=== PATIENT | female | born 1940 | race Caucasian/White ===

== ENCOUNTER → 2021-06-29 15:36 | Outpatient (BNVA) | payer MEDICARE, SELFPAY | PROVIDERS: PCP Internal Medicine; Visit Provider Psychiatry & Neurology Neurology | DX: G25.0 Essential tremor (principal); G31.84 Mild cognitive impairment of uncertain or unknown etiology; G47.30 Sleep apnea, unspecified; Z79.899 Other long term (current) drug therapy; Z96.89 Presence of other specified functional implants | CPT/HCPCS: 95970; 99212 ==

== ENCOUNTER → 2021-10-29 15:31 | Outpatient (BNVA) | payer MEDICARE, SELFPAY | PROVIDERS: PCP Internal Medicine; Visit Provider Psychiatry & Neurology Neurology | DX: G25.0 Essential tremor (principal); G31.84 Mild cognitive impairment of uncertain or unknown etiology; R06.83 Snoring; Z96.89 Presence of other specified functional implants; Z79.899 Other long term (current) drug therapy | CPT/HCPCS: 99212 ==

== ENCOUNTER → 2021-11-14 14:03 | Outpatient (REF) | payer MEDICARE, SELFPAY | LOC: HO.SL 14:03 | PROVIDERS: PCP Internal Medicine; Visit Provider Psychiatry & Neurology Neurology | DX: R06.83 Snoring (principal); G47.10 Hypersomnia, unspecified; G31.84 Mild cognitive impairment of uncertain or unknown etiology | CPT/HCPCS: 95806 ==

== ENCOUNTER → 2022-02-18 14:29 | Outpatient (BNVA) | payer MEDICARE, SELFPAY | PROVIDERS: PCP Internal Medicine; Visit Provider Psychiatry & Neurology Neurology | DX: G47.9 Sleep disorder, unspecified (principal); G31.84 Mild cognitive impairment of uncertain or unknown etiology; G25.0 Essential tremor; Z96.89 Presence of other specified functional implants | CPT/HCPCS: 99212 ==

== ENCOUNTER → 2022-08-19 14:03 | Outpatient (BNVA) | payer MEDICARE, SELFPAY | PROVIDERS: PCP Internal Medicine; Visit Provider Psychiatry & Neurology Neurology | DX: G25.0 Essential tremor (principal); G31.84 Mild cognitive impairment of uncertain or unknown etiology; G47.9 Sleep disorder, unspecified; Z96.89 Presence of other specified functional implants | CPT/HCPCS: 95970; 99212 ==

== ENCOUNTER 2023-02-12 14:08 | Outpatient (AMB) | payer MEDICARE, SELFPAY ==
--- NOTE | 2023-02-12 14:12 | MHC.OFFVIS ---
Intake Vital Signs 02/12/23 14:13 Height 5 ft 5 in Weight 149 lb BMI 24.8 BP 128/62 Blood Pressure Location Rt brachial Position Sitting Respiration 16 Pulse 61 Pulse Source Pulse Oximeter Pulse Oximetry (%) 98 Oxygen Delivery Method Room Air Intake Visit Reasons: 6 mo f/u - Confirmed Intake Note: Pt presents to the office for a 6 month follow up for tremors. Cut Plug Packer Required: No Allergies No Known Allergies Allergy (Verified 02/12/23 14:13) Medication List - Last Reconciled 02/12/23 by Danii Cade MD acetaminophen 325 mg PO QID PRN calcium carbonate 500 mg PO DAILY celecoxib 200 mg PO DAILY cetirizine 10 mg PO DAILY PRN clonazepam 1.5 tab qhs PO bedtime; administer 30 minutes before bedtime nystatin 1 appl topical BID pantoprazole 40 mg PO DAILY polyethylene glycol 3350 17 grams PO DAILY primidone 250 mg PO BID 90 days propranolol 80 mg PO BID 90 days HPI HPI Comments History of Present Illness Details 82y/o female with essential tremors with eber VIM DBS since 2016 comes for follow up.The left 3 fingers are numb for few months now. she is doing well. 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 Brother Leukemia Brother Rheumatoid arthritis Brother Stented coronary artery Social History Household Members: Spouse Alcohol intake: former Patient Tobacco Use Status: Former Tobacco user Quit Date: Physical Exam Vital Signs: Last Vital Signs Pulse 61 02/12/23 14:13 Resp 16 02/12/23 14:13 BP 128/62 02/12/23 14:13 Pulse Ox 98 02/12/23 14:13 Oxygen Delivery Method Room Air 02/12/23 14:13 BMI result Body Mass Index 24.8 Const Other: Head tremors no no , head tilted to right General: cooperative and healthy appearing Neuro Other: No postural tremors No rest tremors head tremors FFM good speech good Cranial nerves: Yes CN's II-XII intact bilaterally and Yes Normal facial strength present Gait exam (Neuro): Other gait observations present (mild off balance) Motor exam (neuro): 5/5 motor strength present throughout Orientation What is the (year) (season) (date) (day) (month)?: year, season, date, day and month Where are we (state) (county) (town or city) (hospital) (floor)?: state, county, town or city, hospital/clinic and floor Registration Name of 3 unrelated objects clearly and slowly, then ask patient to repeat all 3 of them. (1st repeat determines score. Make sure they can repeat all three): object 1, object 2 and object 3 Attention & Calculation (CHOOSE ONE) Spell WORLD backwards (DLROW): 3 letters Recall Ask patient to repeat the 3 items from question #3.: object 1, object 2 and object 3 Language Show patient a wristwatch & ask what it is. Repeat for pencil.: watch and pencil Ask the patient to repeat the phrase 'No ifs, ands, or buts' after you.: correct Ask the patient to 'take a piece of paper with their right hand' 'fold paper in half' 'place paper on floor': take paper in right hand, fold paper in half and place paper on floor Print the sentence 'CLOSE YOUR EYES' on a piece. If patient actually closes eyes then score.: followed written direction Give patient a blank piece of paper & ask to write a sentence. Score if it contains a noun & verb.: sentence contains subject and verb Ask patient to copy figure of intersecting pentagons exactly. Score if all 10 angles & 2 intersects are included.: all 10 angles present & 2 are intersected Score Score: 28 Assessment & Plan Assessment & Plan (1) Benign essential tremor: Code(s): G25.0 - Essential tremor (2) S/P deep brain stimulator placement: Code(s): Z96.89 - Presence of other specified functional implants (3) Mild cognitive impairment: Code(s): G31.84 - Mild cognitive impairment of uncertain or unknown etiology (4) Sleep disorder: Code(s): G47.9 - Sleep disorder, unspecified Plan Continue primidone 250mg bid propranolol 80mg bid clonazepam 0.5mg 1 1/2 tabs qhs [facility] - compliance in ale[place] - average hrs 6 hrs AHI 1.7Pressure about 9-12 cm of water Encouraged patient to use hearing aids to decrease cognitive impairment. DBS interrogated today - needs battery replacement Left VIM 1.6V 90ms 160 Hz Right VIM 0.6V 90Ms 160 Hz Orders: Referrals Neurosurgery Referral G25.0 - Essential tremor, Z96.89 - Presence of other specified functional implants Coding Level of Care Code Est Pt Level 5 (53491) Diagnoses Benign essential tremor G25.0 S/P deep brain stimulator placement Z96.89 Mild cognitive impairment G31.84 Sleep disorder G47.9
[2023-02-12 14:13] VITALS: BP 128/62; PULSE 61; RESP 16; O2SAT 98; BMI 24.8
== END 2023-02-12 15:06 | disposition home or self-care (01) ==
PROVIDERS: PCP Internal Medicine; Visit Provider Psychiatry & Neurology Neurology
DX: G25.0 Essential tremor (principal); Z96.82 Presence of neurostimulator; G31.84 Mild cognitive impairment of uncertain or unknown etiology; G47.9 Sleep disorder, unspecified; Z45.42 Encounter for adjustment and management of neurostimulator
CPT/HCPCS: 95970; 99214

== ENCOUNTER → 2023-02-12 14:08 | Outpatient (BNVA) | payer MEDICARE, SELFPAY | PROVIDERS: PCP Internal Medicine; Visit Provider Psychiatry & Neurology Neurology | DX: G25.0 Essential tremor (principal); G31.84 Mild cognitive impairment of uncertain or unknown etiology; G47.9 Sleep disorder, unspecified; Z96.89 Presence of other specified functional implants | CPT/HCPCS: 95970; 99212 ==

== ENCOUNTER → 2024-04-08 13:57 | Outpatient (AMB) | payer MEDICARE, SELFPAY ==
--- NOTE | 2024-04-08 13:57 | A.OFFVIS_ITS ---
Vital Signs 04/08/24 14:01 Height 5 ft 0.5 in Weight 149 lb BMI 28.6 Intake Visit Reasons: Follow up Commissioning Agent Required: No Accompanied by: Self / Same As Patient Allergies No Known Allergies Allergy (Verified 04/08/24 13:58) Medication List - Last Reconciled 04/08/24 by Yehuda Velez PA-C acetaminophen 325 mg PO QID PRN calcium carbonate 500 mg PO DAILY PRN celecoxib 200 mg PO DAILY clonazepam 1.5 tab qhs PO bedtime; administer 30 minutes before bedtime 30 days nystatin 1 appl topical BID pantoprazole 40 mg PO DAILY polyethylene glycol 3350 17 grams PO DAILY primidone 250 mg PO BID 90 days propranolol 80 mg PO BID 90 days HPI Comments Details: 82y/o female with essential tremors with eber VIM DBS since 2016 comes for follow up. The left hand digits 2,3,4, are numb for few months now. Home sleep study 11/2021 AHI 19/hr O2 swetha 83 She is compliant with CPAP therapy, she says she uses it daily. Her sleep is very good 8-10 hours a night. 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 Her diet is fine, cereal with blueberries and milk. Occasional constipation, she takes miralax prn. She ambulates with a walker at home. She c/o head tremors, especially in synagogue but it gets better when she relaxes. Last month she slipped and fell in the shower, hurt her r. shoulder, went to [facility] and had xrays, did not hit her head. She has a BUILDINGS AND GROUNDS COORDINATOR come in on Fridays and Mondays for 2 hours, and helps her with laundry, cleaning and dishes. She is able to bathe, and dress herself with some statistical assistant. She gets hot meals from [employer]. She socializes at the [facility], does puzzles and plays Bingo. She says her memory is getting worse. [facility] Medical History (Updated 04/08/24 @ 16:30 by Yehuda Velez PA-C) Sleep disorder Mild cognitive impairment (~04/08/24) Benign essential tremor Arthritis Surgical History Status post Mohs surgery S/P skin biopsy S/P deep brain stimulator placement Family History Mother Stomach cancer Father No problems noted. Brother Leukemia Brother Rheumatoid arthritis Brother Stented coronary artery Social History Household Members: Spouse Alcohol intake: former Patient Tobacco Use Status: Former Tobacco user Physical Exam Vital Signs: BMI result Body Mass Index 28.6 Telehealth Telehealth Telehealth Platform: Telephone Location of provider rendering services: practice address Location of patient: address on file Patient Identification confirmed using: Name, : Yes Telehealth method: voice only Patient verbally consented to treatment: Yes Patient verbally consented to billing insurance company: Yes Patient informed of any privacy concerns related to visit: Yes Minutes spent on Phone/Video with Pt.: 45 Assessment & Plan Assessment & Plan (1) Snoring: Code(s): R06.83 - Snoring Category: Medical (2) Sleep disorder: Code(s): G47.9 - Sleep disorder, unspecified Category: Medical (3) Benign essential tremor: Code(s): G25.0 - Essential tremor Category: Medical (4) Cognitive disorder: Code(s): F09 - Unspecified mental disorder due to known physiological condition Category: Medical Plan Cognitive Decline: Continue to socialize with the senior center, playing games, walking and doing puzzles with family and friends. Wear hearing aides daily. Continue CPAP for Sleep Apnea Follow up in 1 month as needed for tremor. Coding Level of Care Code Tele Est Pt Level 4 (53300) Diagnoses Snoring R06.83 Sleep disorder G47.9 Benign essential tremor G25.0 Cognitive disorder F09 Time Spent (min) 45 Comment Improving
--- OUTSIDE RECORDS SUMMARY | 2024-04-08 14:00 | XMS_ITS | Encounter Summary ---
[facility] Address [address] [place] [address] Care Team Providers Care Installation And Repair Technician Name Role Phone Nereida Ulloa MD Primary Care Provider [phone] Reason for Visit * Reason Comments Laceration Left hand lac with k itchen knife Encounter Details Date Type Department Care Team (Late st Contact Info) Description 03/20/2024 8:43 PM EST - 03/20/2024 11:07 PM EST Emergency [facility] Emergency [address] [place] [address] Laceration of left palm, initial encounter (Primary Dx) Discharge Disposition: Home or Self Care Social History Tobacco Use Types Packs/Day Years Used Date Smoking Tobacco: Never Tobacco Cessation:Counseling Given: Not Answered Alcohol Use Standard Drinks/Week Comments Never 0 (1 standard drink = 0.6 oz pur e alcohol) Sex and Gender Information Value Date Recorded Sex Assigned at Female 03/20/2024 9:08 PM EST Gender Identity Female 03/20/2024 9:08 PM EST Sexual Orientation Straight 03/20/2024 9: 08 PM EST Job Start Date Occupation Industry Not on file Not on file Not on file documented as of this encounter Last Filed Vital Signs Vital Sign Reading Time Taken Comments Blood Pressure 145/52 03/20/2024 8:21 PM EST Pulse 68 03/20/2024 8:21 PM EST Temperature 36.6 ??C (97.9 ??F) 03/20/2024 8:21 PM ES T Respiratory Rate 18 03/20/2024 8:21 PM EST Oxygen Saturation 96% 03/20/2024 8:21 PM EST Inhaled Oxygen Concentration - - Weight 67.6 kg (149 lb) 03/20/2024 8:21 PM EST Height 165.1 cm (5' 5 ) 03/20/2024 8:21 PM EST Body Mass Index 24.79 03/20/2024 8:21 PM EST documented in this encounter Discharge Instructions * Discharge Instructions* PETEY Phan - 03/20/2024 10:39 PM EST You had a cut today that we are able to close successfully with skin glue. Please keep the area dryfor 24 hours. After that you may get it wet but only briefly. Do not soak the area, pick at the area, or scratch at the area. When you do get it wet be sure to pat it dry. No bathtubs, lakes, hot tubs, pools or oceans. Please look out for signs of infection such as green or yellow discharge, spreading redness, or fevers. Please allow the glue to fall off on its own. Once it falls off the area should be healed. There will still be an area of redness for a few months. Please be sure to use a sunscreen for at least the first year to prevent scarring. you may also find that vitamin E cream can help prevent scarring. It was a pleasure caring for you today in the emergency department. Please return to the emergency department if you begin to experience any new onset chest pain, shortness of breath, uncontrolled fevers, severe abdominal pain, loss of consciousness, uncontrolled vomiting, uncontrolled diarrhea, or for any other reason you feel is necessary. Please follow-up with your PCP about this visit. Examination and treatment you received in the emergency department has been rendered on an EMERGENCY basis only. It is not intended to be a substitute for or an effort to provide complete medical care. You should follow-up with your primary care provider. Please report to your physician any new or remaining problems, because it is impossible to recognize and treat all elements of injury or illness in a single emergency department visit. If you do not have a primary care provider or require a referral, a follow-up doctor automotive parts person for the emergency department will be provided in your discharge packet. In the event that you're unable to obtain a followup appointment in a timely fashion, OR you are not getting any better, OR you are getting worse, OR you develop any symptoms of concern, please return here immediately for further evaluation. The emergency department is open 24 hours a day, 7 days aweek. Your discharge report is based on information that was available when you were in the emergency department If you do not have a primary care provider, please contact one of the following to make arrangements to follow up. [facility] * Attachments The following attachments cannot be sent through Care Everywhere. * Lacerations: Adhesives (Surinamese) documented in this encounter Medications at Time of Discharge Medication Sig Dispensed Refills Start Date End Date clonazePAM (KlonoPIN) 0.5 mg tablet Take 1 tablet (0.5 mg total) by mouth at bedtime. Max Daily Amount: 0.5 mg 07/11/2016 propranoloL (INDERAL) 80 mg tablet Take 1 tablet (80 mg total) by mouth 2 (two) times a day. 01/16/2024 famotidine (PEPCID) 20 mg tablet Take 1 tablet (20 mg total) by mouth 1 (one) time each day. primidone (MYSOLINE) 250 mg tablet Take 1 tablet (250 mg total) by mouth 2 (two) times a day. documented as of this encounter Discharge Disposition Disposition Code Departure Means Destination Comment s Home or Self Care documented in this encounter Progress Notes * Clau Ernandez RN - 03/20/2024 8:23 PM EST PT arrives to triage alert, oriented and ambulatory with a walker. 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 Bleeding is controlled. NO blood thinners. Cleaned with normal saline, non stick gauze applied and big bandage applied in triage. Lac is about 2cm long on left palm. * PETEY Phan - 03/20/2024 7:46 PM ESTAssociated Order(s): Laceration Repair Emergency Medicine Note Patient Name: Rowena Jain Initial Evaluation: 03/20/2024 : 1940 Patient's PCP: Nereida Ulloa MD Emergency Physician: PETEY Phan History of Present Illness Chief Complaint: Chief Complaint Patient presents with Laceration Left hand lac with kitchen knife HPI: 83-year-old female patient not anticoagulated presented to the ER today reporting a cut on theleft home from a kitchen knife. Patient reports that she was trying to separate frozen hamburgers and accidentally cut herself in the hand when the knife slipped. She reports the bleeding is controlled. Unsure of last Tdap. Denies any distal changes to temperature, sensation, or strength in the fingers. ROS: I have performed a ROS with the pertinent positives and negatives documented in the history ofpresent illness. Previous History History reviewed. No pertinent past medical history. History reviewed. No pertinent surgical history. Social History Tobacco Use Smoking status: Never Substance Use Topics Alcohol use: Never Drug use: Never No family history on file. has No Known Allergies. No current facility-administered medications on file prior to encounter. Current Outpatient Medications on File Prior to Encounter Medication Sig Dispense Refill clonazePAM (KlonoPIN) 0.5 mg tablet Take 1 tablet (0.5 mg total) by mouth at bedtime. Max Daily Amount: 0.5 mg propranoloL (INDERAL) 80 mg tablet Take 1 tablet (80 mg total) by mouth 2 (two) times a day. famotidine (PEPCID) 20 mg tablet Take 1 tablet (20 mg total) by mouth 1 (one) time each day. primidone (MYSOLINE) 250 mg tablet Take 1 tablet (250 mg total) by mouth 2 (two) times a day. Physical Exam Physical Exam Constitutional: General: She is not in acute distress. Appearance: Normal appearance. She is not ill-appearing, toxic-appearing or diaphoretic. HENT: Head: Normocephalic and atraumatic. Eyes: Extraocular Movements: Extraocular movements intact. Pupils: Pupils are equal, round, and reactive to light. Pulmonary: Effort: Pulmonary effort is normal. Musculoskeletal: Comments: Left palm has a 1 cm linear laceration, bleeding controlled, no evidence of foreign body.Full strength noted in all digits distally. Cap refill normal. Laceration is very well-approximated. Skin: General: Skin is warm. Neurological: General: No focal deficit present. Mental Status: She is alert and oriented to person, place, and time. Mental status is at baseline. Psychiatric: Mood and Affect: Mood normal. Behavior: Behavior normal. Thought Content: Thought content normal. Judgment: Judgment normal. ED Triage Vitals [03/20/242020] Temp Heart Rate Resp BP 36.6 ??C (97.9 ??F) 68 18 (!) 145/52 SpO2 Temp src Heart Rate Source Patient Position 96 % -- -- Sitting BP Location FiO2 (%) Right arm -- Results Labs Reviewed - No data to display Abnormal Labs Reviewed - No data to display No orders to display I have discussed the incidental/abnormal imaging and/or lab abnormalities with the patient and haveinstructed them the need for further evaluation and workup with their primary care doctor. I have provided the patient with a paper copy of the abnormality. The laboratory results, imaging results and other diagnostic exam results were reviewed in the EMR. EKG Interpretation Critical Care Time None ? Medical Decision Making Medications Tdap tetanus toxoid-diphtheria toxoid-acellular pertussis (BOOSTRIX) 2.5-8-5 Lf-mcg-Lf/0.5mL vaccine (ADULT - age 7 years and greater) 0.5 mL (0.5 mL intramuscular Given 03/20/24 2223) Medical Decision Making Differential diagnosis include but not limited to: Laceration Nerve injury Tendon injury Vascular injury Foreign body Crush injury Hemorrhage In short 83-year-old female not anticoagulated presenting for laceration to palm of left hand. On arrival vitals are stable patient afebrile. Patient sitting comfortably in chair, nontoxic and in no acute distress, hemodynamically stable. Neurovascularly intact. Bleeding controlled. No foreign body. Well-approximated, believe this could be repaired without sutures and with skin glue instead as there is under low tension and already well-approximated. See procedure note, anticipate discharge after repair. Tdap given. Clinical Impressions as of 03/20/247 Laceration of left palm, initial encounter Procedures Laceration Repair Date/Time: 03/20/2024 10:43 PM Performed by: PETEY Phan Authorized by: Angel Luis Valero MD Consent: Consent obtained: Verbal Consent given by: Patient Risks discussed: Infection, pain, poor wound healing, nerve damage, need for additional repair, poor cosmetic result, vascular damage, retained foreign body and tendon damage Mobile protocol: Patient identity confirmed: Arm band and verbally with patient Anesthesia: Anesthesia method: None Laceration details: Location: Hand Hand location: L palm Length (cm): 1 Exploration: Imaging outcome: foreign body not noted Wound extent: no foreign bodies/material noted and no tendon damage noted Treatment: Area cleansed with: Povidone-iodine Amount of cleaning: Standard Irrigation solution: Sterile saline Irrigation method: Syringe Skin repair: Repair method: Tissue adhesive Approximation: Approximation: Close Post-procedure details: Dressing: Non-adherent dressing Procedure completion: Tolerated well, no immediate complications Diagnosis 1. Laceration of left palm, initial encounter Disposition Discharge ED Prescriptions None Physician Attestation PETEY Phan 03/20/242223 PETEY Phan 03/20/247 Associated attestation - Angel Luis Valero MD - 03/20/2024 10:55 PM EST I agree with the Nurse practitioner's/Physician power plant assistant's note and plan by Ronal Phan 03/20/2024 which I have reviewed and edited where appropriate. I, Dr. Taqueria Valero, [_] was present for the entire procedure: [_] xxx was present for the critical or chen portion of the procedure: Laceration repair [_] performed the initial fracture care for the patient in the ED, comparable to that of a specialist. Surgery is not anticipated. [_] personally verified application and proper positioning of the cast or splint. Angel Luis Valero MD 03/20/24 10:54 PM EST documented in this encounter Plan of Treatment Not on file documented as of this encounter Procedures Procedure Name Priority Date/Time Associated Diagnosis Comments ED LACERATION REPAIR Routine 03/20/2024 10:43 PM EST documented in this encounter Results * Laceration Repair (03/20/2024 10:43 PM EST) Narrative Angel Luis Valero MD - 03/20/2024 10:43 PM EST PETEY Phan ? 03/20/2024 10:47 PM Laceration Repair Date/Time: 03/20/2024 10:43 PM Performed by: PETEY Phan Authorized by: Angel Luis Valero MD ?? Consent: ??Consent obtained: ??Verbal ??Consent given by: ??Patient ??Risks discussed: ??Infection, pain, poor wound healing, nerve damage, need for additional repair, poor cosmetic result, vascular damage, retained foreign body and tendon damage Mobile protocol: ??Patient identity confirmed: ??Arm band and verbally with patient Anesthesia: ??Anesthesia method: ??None Laceration details: ??Location: ??Hand ??Hand location: ??L palm ??Length (cm): ??1 Exploration: ??Imaging outcome: foreign body not noted ?Wound extent: no foreign bodies/material noted and no tendon damage noted ?? Treatment: ??Area cleansed with: ??Povidone-iodine ??Amount of cleaning: ??Standard ??Irrigation solution: ??Sterile saline ??Irrigation method: ??Syringe Skin repair: ??Repair method: ??Tissue adhesive Approximation: ??Approximation: ??Close Post-procedure details: ??Dressing: ??Non-adherent dressing ??Procedure completion: ??Tolerated well, no immediate complications Angel Luis Valero MD IN CLINIC/BEDSIDE OR DERABLES documented in this encounter Visit Diagnoses Diagnosis Laceration of left palm, initial encounter- Primary documented in this encounter Historical Medications * This list may reflect changes made after this encounter. Medication Sig Dispensed Refills Start Date End Date clonazePAM (KlonoPIN) 0.5 mg tablet Take 1 tablet (0.5 mg total) by mouth at bedtime. Max Daily Amount: 0.5 mg 07/11/2016 famotidine (PEPCID) 20 mg tablet Take 1 tablet (20 mg total) by mouth 1 (one) time each day. primidone (MYSOLINE) 250 mg tablet Take 1 tablet (250 mg total) by mouth 2 (two) times a day. propranoloL (INDERAL) 80 mg tablet Take 1 tablet (80 mg total) by mouth 2 (two) times a day. 01/16/2024 added in this encounter Care Teams Installation And Repair Technician Relationship Specialty Start Date End Date Nereida Ulloa MD [address] [place] [id number] PCP - General Internal Medicine 03/20/24 documented as of this encounter
--- OUTSIDE RECORDS SUMMARY | 2024-04-08 14:00 | XMS_ITS ---
Author Organization [facility] Address [address] [place] [address] Phone Care Team Providers Care Automation Specialist Name Role Phone Nereida Ulloa MD Primary Care Provider [phone] [facility] [phone] Plan of Treatment No Plan of Treatment Recorded Assessments Includes: Assessments for all patient encounters No Assessments Recorded Medical Equipment - Implanted Devices Includes: Current and historical Devices No Medical Equipment Recorded Medications Administered Includes: Administered Medications in patient's chart No Administered Medications Recorded Vital Signs Includes: Vital Signs from 04/08/2023 through 04/08/2024 Vital Name 10/30/2023 09:10A Blood Pressure Sitting (mmHg) 147/68 Pulse Rate-Sitting (bpm) 62 Temp-Temporal 96.9 Height (in) 65 Weight (lb) 153 Body Mass Index 25.5 Body Surface Area 1.8 Oxygen Saturation (%) 97 Last Documented: On 10/30/2023 9:10AM ; [facility] Results Includes: Results from 04/08/2023 through 04/08/2024 No Results Recorded For Specified Dates History of Present Illness History of Present Illness not supported for this document type No History of Present Illness Recorded Social History No Social History Recorded - Smoking Status Unknown Medical History Includes: Medical History in patient's chart No Medical History Recorded Family History Includes: Family History in patient's chart No Family History Recorded Review of Systems Review of Systems not supported for this document type No Review of Systems Recorded Mental Status No Mental Status Recorded Functional Status No Functional Status Recorded Physical Exam Physical Exam not supported for this document type No Physical Exam Recorded Encounters Includes: Encounters from 04/08/2023 through 04/08/2024 Encounter Provider Location Date Check-In Time Check-Out Time Diagnosis Medicare New Patient [facility] 8:40AM 9:38AM Insurance Includes: Active Insurance Policies Plan Name Member ID Group # Subscriber Relationship Effect álvaro Dates 1 - Medicare Part B [facility] [id number] Rowena Jain Self 2 - [employer] [id number] Rowena Thomas Clinical Notes Includes: Signed Clinical Notes starting from 02/10/2022 * Progress note Date Encounter Last Documented by 10/30/2023 Medicare New Patient Last docume nted on 10/30/2023; 11:59 AM, Jose Antonio Griffin MD; [facility], Chief Complaint CC: Left shoulder contusion/left shoulder pain HPI: 83-year-old jtupe-nmoo-kujommyb female independent living 10/27/2019 for mechanical fall while attempting to climb in and out of bathtub Evaluated [facility] ER Imaging studies suggestive but not definitive for nondisplaced fracture through the acromion of the left shoulder Patient complains of left shoulder pain mild to moderate Low demand ambulator with walker Physical exam alert altered nondistressed 83-year-old male essential tremor initial impression was Parkinson's but after discussion with daughter there is no diagnosis of Parkinson's disease Moderate point tenderness acromion no tenderness over the coracoid Neurologically intact distally sensation intact distally X-rays reviewed no x-rays today imaging studies from ER visit 10/27/2023 reviewed question of a nondisplaced acromial fracture Impression/plan 83-year-old tfshq-tmbb-jwddmekr female left shoulder contusion with acromion fracture nondisplaced Plan: Nonsurgical treatment Progress to weightbearing as tolerated Reavoidance of impact activities DEMETRICE Griffin MD Physical Findings - Vitals taken 10/30/2023 09:10 am BP-Sitting 147/68 mmHg Pulse Rate-Sitting 62 bpm Temp-Temporal 96.9 F Height 65 in Weight 153 lbs Body Mass Index 25.5 kg/m2 Body Surface Area 1.8 m2 Oxygen Saturation 97 %
--- OUTSIDE RECORDS SUMMARY | 2024-04-08 14:00 | XMS_ITS ---
Care Plan - [facility] Created on: April 08, 2024 Rowena Jain : 1940 Sex: Female Author Organization [facility] Address [address] [place] [address] Phone Care Team Providers Care Warping Mill Operator Name Role Phone Nereida Ulloa MD Primary Care Provider [phone] [facility] Unavailable [phone]
[2024-04-08 14:01] VITALS: BMI 28.6
--- OUTSIDE RECORDS SUMMARY | 2024-04-08 14:01 | XMS_ITS | Clinical Summary ---
Author Organization [facility] Address [address] [place] [address] Phone Care Team Providers Care Jewelry Engraver Name Role Phone Nereida Ulloa MD Primary Care Provider [phone] Allergies No known active allergies Medications Medication Sig Dispensed Refills Start Date End Date Status propranoloL (INDERAL) 80 mg tablet Take 1 tablet (80 mg total) by mouth 2 (two) times a day. 01/16/2024 Active primidone (MYSOLINE) 250 mg tablet Take 1 tablet (250 mg total) by mouth 2 (two) times a day. Active famotidine (PEPCID) 20 mg tablet Take 1 tablet (20 mg total) by mouth 1 (one) time each day. Active clonazePAM (KlonoPIN) 0.5 mg tablet Take 1 tablet (0.5 mg total) by mouth at bedtime. Max Daily Amount: 0.5 mg 07/11/2016 Active Encounters Date Type Department Care Team Description 03/20/2024 8:43 PM EST - 03/20/2024 11:07 PM EST Emergency [facility] Emergency [address] [place] [address] Laceration of left palm, initial encounter (Primary Dx) Discharge Disposition: Home or Self Care from Last 3 Months Immunizations Name Administration Dates Next Due Tdap Tetanus diptheria acell ular pertussis (Boostrix; Adacel) 7yo and older 03/20/2024 Social History Tobacco Use Types Packs/Day Years [...] file Not on file Not on file Obstetrics History Last Filed Vital Signs Vital Sign Reading [...] Mass Index 24.79 03/20/2024 8:21 PM EST Plan of Treatment Health Maintenance Due Date Last Done Comments Zoster Vaccines (1 of 2) 1988 RSV Immunization Patients 60+ Years Old (1 - 1-dose 75+ series) 2013 Pneumococcal Vaccine: 65+ Years (2 of 2 - PPSV23 or PCV20) 11/29/2017 11/29/2016 Depression Screening 02/02/2022 Falls Risk Assessment 02/02/2022 Medicare Annual Wellness Visit 02/02/2022 Osteoporosis Screening (Bone Density Screening) 02/02/2022 Social Influencers of Health Screening 02/02/2022 COVID-19 Vaccine ( season) 2023 04/11/2023, 12/21/2021, 08/10/2021, Additional history exists DTaP,Tdap,and Td Vaccines (2 - Td or Tdap) 03/20/2034 03/20/2024 Influenza Vaccine Completed 02/24/2024, , 11/13/2021, Additional history exists HIB Vaccines Aged Out No longer eligi ble based on patient's age to complete this topic HPV Vaccines Aged Out No longer eligi ble based on patient's age to complete this topic Hepatitis A Vaccines Aged Out No long er eligible based on patient's age to complete this topic Hepatitis B Vaccines Aged Out No long er eligible based on patient's age to complete this topic IPV Vaccines Aged Out No longer eligi ble based on patient's age to complete this topic MMR Vaccines Aged Out No longer eligi ble based on patient's age to complete this topic Meningococcal ACWY Vaccine Aged Out N o longer eligible based on patient's age to complete this topic RSV Immunization Patients Under 20 months Aged Out No longer eligible based on patient's age to complete this topic Varicella Vaccines Aged Out No longer eligible based on patient's age to complete this topic Procedures Procedure Name Priority Date/Time Associated Diagnosis Comments ED LACERATION REPAIR Routine 03/20/2024 10:43 PM EST from Last 3 Months Results * Laceration Repair (03/20/2024 10:43 PM [...] damage, retained foreign body and tendon damage [place] protocol: ??Patient identity confirmed: ??Arm band and [...] Luis Valero MD IN CLINIC/BEDSIDE OR DERABLES from Last 3 Months Care Teams Jewelry Engraver Relationship Specialty Start Date End Date Nereida Ulloa MD [address] [place], [place] [id number] PCP - General Internal Medicine 03/20/24
--- OUTSIDE RECORDS SUMMARY | 2024-04-08 14:01 | XMS_ITS | Clinical Summary ---
Author Organization [facility] Address [address] [place] [address] Phone Care Team Providers Care Telemarketing Manager Name Role Phone Nereida Ulloa MD Primary Care Provider [phone] [facility] [phone] Reason for Visit and Chief Complaint Medicare New Patient Plan of Treatment No Plan of Treatment Recorded Assessments Includes: Assessments from this encounter No Assessments Recorded Medical Equipment - Implanted Devices Includes: Current Devices No Medical Equipment Recorded Medications Administered Includes: Administered Medications from this encounter No Administered Medications Recorded Vital Signs Includes: Vital Signs from this encounter Vital Name 10/30/2023 09:10A Blood Pressure Sitting (mmHg) 147/68 Pulse Rate-Sitting (bpm) 62 Temp-Temporal 96.9 Height (in) 65 Weight (lb) 153 Body Mass Index 25.5 Body Surface Area 1.8 Oxygen Saturation (%) 97 Last Documented: On 10/30/2023 9:10AM ; [facility] Results Includes: Results discussed during this encounter No Results Recorded For Specified Dates History of Present Illness Includes: History of Present Illness from this encounter No History of Present Illness Recorded Social History No Social History Recorded - Smoking Status Unknown Medical History Includes: Medical History addressed during this encounter No Medical History Recorded Family History Includes: Family History addressed during this encounter No Family History Recorded Review of Systems Includes: Review of Systems from this encounter No Review of Systems Recorded Mental Status Includes: Mental Status from this encounter No Mental Status Recorded Functional Status Includes: Functional Status from this encounter No Functional Status Recorded Physical Exam Includes: Physical Exam from this encounter Encounters Encounter Provider Location Date Check-In Time Check-Out Time Diagnosis Medicare New Patient Jose Antonio Griffin MD [facility] 10/30/19 24 8:40AM 9:38AM Insurance Includes: Active Insurance Policies Plan Name Member ID Group # Subscriber Relationship Effect álvaro Dates 1 - Medicare Part B [facility] [id number] Rowena Susy William 2 - [employer] [id number] Rowena Hernandezb William Clinical Notes Includes: Clinical Notes from this encounter * Progress note Date Encounter Last Documented by 10/30/2023 Medicare New Patient Last docume nted on 10/30/2023; 11:59 AM, Jose Antonio Griffin MD; [facility], Chief Complaint CC: Left shoulder contusion/left shoulder pain HPI: 83-year-old vbour-xjcz-wfwopyky female independent living 10/27/2019 for mechanical fall while attempting to climb in and out of bathtub Evaluated [facility] ER Imaging studies suggestive but not definitive [...] of a nondisplaced acromial fracture Impression/plan 83-year-old lmwkx-kukm-ajsggelj female left shoulder contusion with acromion fracture [...]
== END ==
PROVIDERS: Absent Provider Physician Assistant Medical; PCP Internal Medicine; Visit Provider Physician Assistant Medical
DX: R06.83 Snoring (principal); G47.9 Sleep disorder, unspecified; G25.0 Essential tremor; R41.89 Other symptoms and signs involving cognitive functions and awareness
CPT/HCPCS: 98016

== ENCOUNTER → 2024-04-08 13:57 | Outpatient (BNVA) | payer MEDICARE, SELFPAY | PROVIDERS: Absent Provider Physician Assistant Medical; PCP Internal Medicine; Visit Provider Physician Assistant Medical ==